=== PATIENT | female | born 1935 | race Two or more races ===

== ENCOUNTER 2024-11-30 07:24 | Emergency (ER) | payer OTHER ==
[~2024-11-30] VITALS: Ht 157.5 cm; Wt 59.0 kg
[2024-11-30] MEDS ORDERED: TOPROL XL50 M1 (07:40)
[2024-11-30] MEDS ORDERED: COZAAR100 MG PO (07:40)
[2024-11-30] MEDS ORDERED: PLAVIX75 MG (07:40)
[2024-11-30] MEDS ORDERED: PEPCID AC20 MG (07:41)
== END 2024-11-30 10:08 | disposition home or self-care (01) ==
LOC: ER 07:24
DX: K62.5 Hemorrhage of anus and rectum (principal); K91.840 Postprocedural hemorrhage of a digestive system organ or structure following a digestive system procedure; I10 Essential (primary) hypertension; Z88.6 Allergy status to analgesic agent; Z88.9 Allergy status to unspecified drugs, medicaments and biological substances

== ENCOUNTER 2024-12-01 07:03 | Emergency (ER) | payer OTHER ==
[~2024-12-01] VITALS: Ht 157.5 cm; Wt 59.0 kg
[~2024-12-01 07:03] MED LIST: COZAAR100 MG PO; PEPCID AC20 MG; PLAVIX75 MG; TOPROL XL50 M1
[2024-12-01 09:01] LABS: BASO % 0.1 % (0.1-1.2); EOS # 0.13 (0.04-0.54); EOS % 1.7 % (0.7-7.0); LYMPH # 2.09 (1.18-3.74); LYMPH % 27.7 % (19.3-53.1); MEAN PLATELET VOLUME 10.40 fl (9.4-12.4); MONO # 0.69 (0.24-0.82); MONO % 9.2 % (4.7-12.5); NEUT # 4.61 (1.56-6.13); NEUT % 61.2 % (34.0-71.1); RED CELL DISTRIBUTION WIDTH 15.3 % (11.6-14.4)
== END 2024-12-01 10:25 | disposition home or self-care (01) ==
LOC: ER 07:03
PROVIDERS: Emergency Medicine
DX: K91.840 Postprocedural hemorrhage of a digestive system organ or structure following a digestive system procedure (principal); I10 Essential (primary) hypertension; Z88.6 Allergy status to analgesic agent; Z88.8 Allergy status to other drugs, medicaments and biological substances